=== PATIENT | female | born 1955 | race Caucasian/White ===

== ENCOUNTER 2021-04-16 08:52 | Inpatient (IN) ==
--- NOTE | 2021-04-10 07:30 | ANES ---
Anesthesia Pre Procedure Eval HOME MEDICATIONS atorvastatin 20 mg tablet 20 mg PO DAILY tab 03/14/21 [Last Taken Unknown] lansoprazole 30 mg capsule,delayed release 30 mg PO DAILY cap 03/14/21 [Last Taken Unknown] levothyroxine 50 mcg tablet 50 mcg PO DAILY tab 03/14/21 [Last Taken Unknown] loratadine 10 mg tablet 10 mg PO DAILY 03/14/21 [Last Taken Unknown] melatonin 10 mg capsule 10 mg PO HS PRN 03/14/21 [Last Taken Unknown] multivitamin 1 tab PO DAILY 03/14/21 [Last Taken Unknown] Allergies/Adverse Reactions: Allergies Allergy/AdvReac Type Severity Reaction Status Date / Time Penicillins Allergy Hives Verified 03/14/21 09:09 - Planned Procedure Planned Procedure: Right Total Knee, left knee cortisone injection Medication List Reviewed:: Yes Allergies Verified: Yes Medical History (Last Reviewed 04/10/21 @ 07:29 by Raad Stephens CRNA) Primary osteoarthritis of left knee (Acute) Primary osteoarthritis of right knee (Acute) Borderline hypothyroidism Decreased GFR GERD (gastroesophageal reflux disease) High risk medication use Hypercholesteremia Hyperkalemia Hypothyroidism (acquired) Knee pain, bilateral Seasonal allergies Surgical History (Last Reviewed 04/10/21 @ 07:29 by Raad Stephens CRNA) History of section X 3 Family History (Last Reviewed 04/10/21 @ 07:29 by Raad Stephens CRNA) Father Cancer Mother COPD (chronic obstructive pulmonary disease) - Family Anesthesia History Family History:: no untoward family reactions to anesthesia - Airway/Neck/Teeth Within Normal Limits:: Yes Teeth Condition: intact - Respiratory Smoking Status: Never smoker Sleep Apnea currently treated: No Sleep Apnea by current assessment: No - Cardiovascular Cardiac History: hyperlipidemia Tolerate Activity: Good - Gastrointestinal NPO since: instructed npo after mn - Anesthesia Assessment and Plan ASA Class: PS, II Anesthesia Type Plan: Spinal - adductor canal block
[~2021-04-16 08:52] MED LIST: BUPIVACAINE HCL IJ PRN; MORPHINE SULFATE 15 MG TABLET.SA PO PRN; ROPIVACAINE/CLONIDIN/KETOROLAC 50 ML SYRINGE IJ ONE; ROPIVACAINE/CLONIDIN/KETOROLAC 50 ML SYRINGE IJ PRN; TRANEXAMIC ACID IN NACL,ISO-OS 1,000 MG/100 ML BAG IV PRN; TRIAMCINOLONE ACETONIDE 40 MG IJ PRN; TRIAMCINOLONE ACETONIDE 40 MG/ML VIAL ONE; ceFAZolin SODIUM 1 GM VIAL IV PRN; ceFAZolin SODIUM 1 GM VIAL ONE
[2021-04-16] MEDS ORDERED: BUPIVACAINE HCL 50 ML VIAL IJ ONE (09:21)
[2021-04-16] MEDS ORDERED: MIDAZOLAM HCL/PF 5 MG/ML VIAL ONE (09:31)
[2021-04-16] MEDS ORDERED: PROPOFOL VIAL IV ONE (09:31)
[2021-04-16] MEDS ORDERED: BUPIVACAINE HCL/EPINEPHRINE 50 ML VIAL IJ ONE (09:31)
[2021-04-16] MEDS ORDERED: BUPIVACAINE HCL/PF 10 ML VIAL ONE (09:31)
[2021-04-16] MEDS ORDERED: NORMAL SALINE 20 ML VIAL ONE (09:32)
[2021-04-16] MEDS: RINGER'S SOLUTION,LACTATED 1,000 ML IV PRN ×2 (09:39→10:50)
[2021-04-16] MEDS ORDERED: TRIAMCINOLONE ACETONIDE 40 MG/ML VIAL ONE (12:04)
[2021-04-16] MEDS ORDERED: ZOLPIDEM TARTRATE 5 MG TABLET PO PRN (12:05)
[2021-04-16] MEDS ORDERED: MORPHINE SULFATE 2 MG/ML DISP.SYRIN IV PRN (12:05)
[2021-04-16] MEDS ORDERED: diphenhydrAMINE HCL 50 MG/ML VIAL IV PRN (12:05)
[2021-04-16] MEDS ORDERED: ACETAMINOPHEN 500 MG TABLET PO PRN (12:05)
[2021-04-16] MEDS ORDERED: ONDANSETRON HCL/PF 2 MG/ML VIAL IV PRN (12:05)
[2021-04-16] MEDS ORDERED: DEXTROSE 5%-LACTATED RINGERS 1,000 ML IV PRN (12:05)
[2021-04-16] MEDS ORDERED: MAGNESIUM HYDROXIDE 30 ML UDC PO PRN (12:05)
[2021-04-16] MEDS ORDERED: MAG HYDROX/ALUMINUM HYD/SIMETH 30 ML UDC PO PRN (12:05)
[2021-04-16] MEDS ORDERED: LORATADINE 10 MG TABLET PO PRN (12:07)
[2021-04-16] MEDS ORDERED: MELATONIN 3,000 MCG TABLET PO PRN (12:07)
--- NOTE | 2021-04-16 12:12 | OR ---
Operative Report - Dictated Report Narrative: Date: 04/16/2021 Preoperative diagnosis: Right knee degenerative joint disease. Left knee pain Postoperative diagnosis: Right knee degenerative joint disease. Left knee pain. Intraoperative right lateral femoral condyle fracture Procedure: Right total knee arthroplasty. Open reduction internal fixation of right lateral femoral condyle fracture. Left knee intra-articular injection Surgeon: Yair Ledezma M.D. Supervisor Capacitor Processing: Prem Vera PA-C (provided and essential set of skilled, educated hands that assisted with transfer, positioning, prepping, draping, manipulation, retraction, placement of jigs, injection, insertion of implants, irrigation, closure wounds, and dressings all of which could not be performed by the available surgical crew) Anesthesia: Spinal with regional block and local periarticular joint injection. Complications: Intraoperative fracture right lateral femoral condyle Specimens: Bone. Estimated blood loss: Minimal. Tourniquet time: 90 minutes at 300 millimeters of mercury. Retained implants: Depuy Attune size 5 narrow right lugged cemented posterior stabilized femoral component. Size 4 fixed-bearing cemented tibial platform. 5 by 6 millimeter posterior stabilized cross-linked tibial insert. 35 millimeter medialized patella button. 60 mm 3.5 mm fully threaded cortical screw with washer Indications: Mrs. Lang is a 65-year-old female who has had longstanding right knee pain and arthrosis as well as left knee pain. This patient was followed in my clinic for period of time with significant complaints of right knee pain consistent with arthritic changes. She had failed conservative measures including, but not limited to, activity modification, passage of time, medications, and other conservative measures. Patient wished to proceed with surgical treatment. The risks, benefits, and alternatives were discussed in clinic. The risks of , blood clots, bleeding, infection, nerve/tendon blood vessel/ injury, malposition of components, intraoperative fracture, postoperative limited range of motion, persistent pain, failure of components, and need for additional procedures. Patient wished to proceed consent was obtained after answering all questions. Procedure: After marking the correct extremity on the floor, the patient was taken to the operating room. A timeout was performed. IV antibiotics consisting of Ancef were administered prior to the procedure. A regional followed by spinal anesthetic was induced by anesthesia, per my request, on the operative table with all bony prominences well-padded. Ceja catheter was placed, and a bump was placed under the operative side buttock. SCDs and KENNEDY hose were utilized on the nonoperative leg. A well-padded tourniquet was applied to the operative thigh. The operative leg was then pre-scrubbed with alcohol, prepped, and draped in a standard sterile fashion. After exsanguinating the extremity with an Esmarch bandage, the tourniquet was inflated. After marking out the anterior knee for standard incision centered over the patella, the skin was incised and dissected down to the joint retinaculum. The joint retinaculum was marked out as well as the horizontal axis of the patella, and a standard medial parapatellar arthrotomy was then made. The most proximal aspect of the quadriceps tendon and the patella tendon insertion were protected from release. A partial synovectomy was performed as well as a resection of the infrapatellar fat pad. The distal femoral fat pad proximal to the trochlea was also resected using cautery. The soft tissues were elevated off the medial aspect of the proximal tibia using a Urena elevator ensuring that we did not transect the medial collateral ligament. Upon initial evaluation range of motion was approximately 3 degrees to 130 degrees of flexion. There were signs of advanced arthrosis in the medial, lateral, and patellofemoral joint spaces. There were large marginal osteophytes which were removed with a rongeur. It was noted that her bone was quite soft. The knee was hyperflexed and the patella was tucked laterally. Protecting the surrounding soft tissues with Homans, an entry drill was placed down the femoral canal using Whitesides line for guidance into the entry point. The intram edullary femoral alignment fam was utilized in order to cut the distal femur in 5 degrees of valgus resecting 10 millimeters of bone. Next the distal femur was sized to a size 5. A posterior referencing guide was utilized to place the distal femoral cutting block in 3 degrees of external rotation. This was pinned into place. The rotation was confirmed both visually and based on anatomic landmarks. The 4 in 1 cutting jig of the appropriate size was utilized in order to make all bony cuts. The heriberto wing was used to ensure no notching. Retractors were utilized in order to protect surrounding soft tissues. This cut did not result in any excessive notching. We then cut the box centered over the distal femur. This allowed for resection of the anterior and posterior cruciate ligaments. I then turned my attention to the preparation of the tibia. Using an extra medullary tibial alignment fam, 4 millimeters of bone was resected off the medial articular surface. This was made perpendicular to the mechanical axis of the joint with the alignment fam centered over the ankle mortise. The alignment fam was checked and was noted to be parallel to the mechanical axis, centered over the medial one third of the tibial tubercle, paralleling the anterior surface of the tibia. We then turned our attention to the remaining meniscus and soft tissues. These were removed while protecting the surrounding ligaments and soft tissues. The marginal osteophytes off the anterior, posterior, medial, lateral aspects of the femur and tibia were removed. The tibia was sized out to a size 4. Next the tibia was drilled and punched in an externally rotated position. Next the trial femur and a series of tibial inserts were utilized in order to allow for full extension and maximal flexion. It was found that a 6 millimeter insert gave the best range of motion and stability at multiple flexion points as well as at full extension there was less than 2 mm of gapping both medially and laterally. There is minimal anterior translation with the knee at 90 degrees of flexion and no signs of being able to dislocate the knee. The patella was then prepared. The initial thickness was 21 millimeters. This was reamed down to 12 millimeters parallel to the anterior surface of the patella. It was sized out to a size 35 medialized patella button. This was then drilled and trialed. Without any medial restraint the patella tracked appropriately and did not sublux or dislocate. At this point, it was felt these were the appropriate sized implants, and all trials were removed. At this point it was discovered that she had a longitudinal split without displacement of a lateral femoral condyle which exited out through the distal femoral pinhole and into the notch. It did not extend to the cortex laterally. A 3.5 mm fully threaded cortical screw was placed medial to lateral with a washer while holding the fracture reduced with pointed reduction clamps. The clamps were held in place as well throughout the remaining portion of procedure. Next, the standard periarticular joint injection consisting of ropivacaine, Toradol, and epinephrine were injected into the periarticular joint tissues. The bony surfaces were thoroughly irrigated with a pulsatile-suction saline irrigation device. A bone plug from the prior resected anterior chamfer cut was placed into the drill hole at the distal femur. The bony surfaces were then dried in preparation for placement of the implants. The cement was vacuum mixed per the boilermaker assembly and erection's instructions. The cement was placed on the dry bony surfaces and posterior aspect of the implants. The implants were impacted into place, removing all extruded cement. At this point anesthesia administered tranexamic acid per protocol intravenously. The knee was placed in extension with axial loading with the trial insert while the cement cured. Once the cement cured, all remaining extruded cement was removed. The knee was placed through a range of motion with the trial insert to ensure appropriate range of motion and stability. Final range of motion was approximately 0 to 130 degrees. The knee was again thoroughly irrigated with pulsatile saline lavage. The final polyethylene insert was then impacted into place ensuring no retained soft tissues. The remaining periarticular joint injection was injected. A medium Hemovac drain was placed exiting superior laterally. The knee was then placed over a triangle and the arthrotomy was closed with interrupted #1 Vicryl after thoroughly irrigating the joint. The deep and subcutaneous tissues were closed with interrupted 0 and 3-0 Vicryl respectively. Skin was closed with a running subcutaneous 3-0 Monocryl and Prineo Dermabond dressing. 4 x 4's, Sof-Rol, and a full leg Jeff wrap were applied. All sponge, needle, blade, and instrument counts were correct prior to closing the wounds. A left knee steroid injection with 40 mg of Kenalog and local anesthetic was injected into the left knee using sterile technique and a bandage was applied. Postoperative condition: The patient was awoken and transferred to the postanesthesia care unit in stable condition. Plan is to be admitted to the inpatient medical/surgical floor postoperatively for 24 hours of IV antibiotics, physical therapy, occupational therapy, and medical comanagement. Patient will be weightbearing as tolerated with range of motion as tolerated. DVT prophylaxis will be with SCDs, KENNEDY hose, and pharmacological anticoagulation. Anticipated hospital stay is approximately 1-3 days.
--- NOTE | 2021-04-16 12:36 | ANES ---
Post Anesthesia Discharge - Transfer of Care Transfer of Care handoff given to nurse: Yes - Discharge from PACU Discharge from PACU when meets criteria: Yes
--- NOTE | 2021-04-16 12:39 | ANES ---
Anesthesia Procedure Note Procedure Note: ANESTHESIA PROCEDURE NOTE Date of procedure: 04/16/2021. Time of procedure: 1020. Performed by: Jaya Stephens CRNA Roller Presser Operator: Stephy Ferrara RN . Preprocedure diagnosis: Right knee DJD. Post procedure diagnosis: Same. Procedure: Ultrasound-guided right adductor canal block Indications: Postoperative analgesia. Findings: Patient brought to operating room #4, sedated, and given a spinal anesthetic. Patient was then placed in a supine position. Patient's right inner thigh was prepped with ChloraPrep. Ultrasound utilized to identify the saphenous nerve in the right adductor canal. A 20-gauge 4 inch regional block needle was advanced under ultrasound guidance till tip of needle was placed just proximally to saphenous nerve. A total of 30 mL of 0.25% Marcaine with epinephrine 1 200,000 was injected with adequate spread of local anesthesia noted. Regional block needle was removed intact. EBL: Minimal. Fluids: N/A. Specimen: N/A. Post procedure condition: The patient tolerated the procedure well. No complications were noted. Thank you for this consultation Jaya Stephens CRNA
--- NOTE | 2021-04-16 12:44 | ANES ---
Post Anesthesia Assessment - Vital Signs Vitals: Last Vital Signs Temp 36.2 C 04/16/21 12:40 Pulse 101 H 04/16/21 12:40 Resp 20 04/16/21 12:40 BP 113/58 04/16/21 12:40 Pulse Ox 98 04/16/21 12:40 Airway Patency: Normal - Mental Status Level Of Consciousness: Awake - Pain Level Pain Score: 0 - N/V Assessment Nausea/Vomiting Presence: None Dehydration:: No
[2021-04-16] MEDS: ceFAZolin SODIUM 1 GM in DEXTROSE 5 % IN WATER 100 ML IV SCH ×4 (13:26→20:21)
[2021-04-16] MEDS: KETOROLAC TROMETHAMINE 15 MG/ML VIAL IV SCH ×2 (13:27→18:47)
[2021-04-16] MEDS ORDERED: PANTOPRAZOLE SODIUM 40 MG TABLET.EC ONE (17:51)
[2021-04-16] MEDS: PANTOPRAZOLE SODIUM 40 MG TABLET.EC PO SCH (17:54)
[2021-04-16] MEDS: oxyCODONE HCL/ACETAMINOPHEN 1 TAB TABLET PO PRN (19:44)
[2021-04-16] MEDS: MORPHINE SULFATE 15 MG TABLET.SA PO SCH (20:18)
[2021-04-16] MEDS: ASPIRIN 81 MG TABLET.DR PO SCH (20:18)
[2021-04-16] MEDS ORDERED: SENNOSIDES/DOCUSATE SODIUM 1 TAB TABLET PO SCH (21:00)
[2021-04-16] MEDS ORDERED: ROSUVASTATIN CALCIUM 10 MG TABLET PO SCH (21:00)
[2021-04-17] MEDS: KETOROLAC TROMETHAMINE 15 MG/ML VIAL IV SCH ×3 (01:06→11:44)
[2021-04-17] MEDS: ceFAZolin SODIUM 1 GM in DEXTROSE 5 % IN WATER 100 ML IV SCH ×2 (01:09)
[2021-04-17] MEDS: PANTOPRAZOLE SODIUM 40 MG TABLET.EC PO SCH (06:37)
[2021-04-17] MEDS ORDERED: LEVOTHYROXINE SODIUM 50 MCG TABLET PO SCH (07:00)
[2021-04-17 07:07] LABS: Hematocrit 34.6 % (37.0-47.0); Hemoglobin 11.3 gm/dL (12.5-16.0); Mean Cell Volume 94.3 fl (78-100); Mean Corpuscular Hemoglobin 30.8 pg (27-31); Mean Corpuscular Hgb Conc 32.7 g/dl (32-36); Mean Platelet Volume 10.4 fl (8-12.5); Platelet Count 199 K/mm3 (150-450); Red Blood Count 3.67 M/mm3 (4.2-5.4); Red Cell Distribution Width 12.5 % (11.5-14.0); White Blood Count 11.5 K/mm3 (4.0-10.5)
[2021-04-17 07:14] LABS: Anion Gap 12.1 mmol/L (6.8-13.8); BUN/Creatinine Ratio 14.4 (9.0-21.6); Calcium * 8.7 mg/dL (7.9-10.9); Carbon Dioxide 26.3 mmol/L (24-32.6); Estimated Creat Clear 47.8; Potassium 4.4 mmol/L (3.4-4.6)
[2021-04-17] MEDS: oxyCODONE HCL/ACETAMINOPHEN 1 TAB TABLET PO PRN ×2 (08:07→15:57)
[2021-04-17] MEDS: ASPIRIN 81 MG TABLET.DR PO SCH (08:08)
[2021-04-17] MEDS ORDERED: MULTIVITAMINS 1 CAP CAPSULE PO SCH (09:00)
[2021-04-17] MEDS: MORPHINE SULFATE 15 MG TABLET.SA PO SCH (10:09)
[2021-04-17] MEDS ORDERED: ENOXAPARIN SODIUM 40 MG/0.4 ML SYRG SC SCH (11:06)
--- NOTE | 2021-04-17 14:42 | DS ---
(1) Status post right knee replacement Problem: Acute Date of Discharge:: 04/17/21 Hospital Course: Mrs. Lang was admitted to the floor after undergoing right total knee arthroplasty. Tolerated this well. Was admitted to the floor postoperatively for 24 hours of IV antibiotics, pain control, medical comanagement, and occupational and physical therapy. OT and PT were consulted to assist with activities of daily living and ambulation. Was made weightbearing as tolerated with range of motion as tolerated. Pain was initially controlled with IV regimen. This was transitioned to oral once tolerating a by mouth intake. Was resumed on home diet and medications. Had a Ceja catheter inserted and the operating room which was discontinued on postoperative day 1. A drain was placed intraoperatively into the knee which was discontinued on postoperative day 1. Lovenox SCD, 81 mg aspirin twice daily and KENNEDY hose were utilized for DVT prophylaxis. Vital signs remained stable to the hospital course. Serial labs were obtained which showed a final hemoglobin of 11.3 grams. BMP was r eviewed and was stable. Physical examination throughout the hospital course showed an extremity that had sensation that was intact to light touch, palpable pulses, a benign wound, motor intact to the toes, ankle, and knee. Knee range of motion was approximately 5 degrees to 70 degrees. Once an oral pain regimen was tolerated and physical therapy goals were met, it was felt that they were stable for discharge to home. Instructions: Continue with weightbearing as tolerated and range of motion as tolerated. It is OK to shower on the wound if it is not draining. If you note any drainage or f or comfort you can cover with dry gauze and tape. Change every 2-3 days as needed. Continue with physical therapy. Resume home diet. Report any fever over 101.5 Fahrenheit, uncontrolled pain, increased drainage, foul odor of drainage, new or increased calf pain or shortness of breath, or any other significant complaints. A 81 mg aspirin but twice daily for 6 weeks. Continue with KENNEDY hose on the operative extremity until instructed otherwise. No driving until instructed otherwise. Follow up in approximately 10-14 days. Procedures Performed: see notes below List Procedures: Right total knee arthroplasty Results and Findings: Lab Pending Results 04/17/21 06:30: WBC 11.5 H, RBC 3.67 L, Hgb 11.3 L, Hct 34.6 L, MCV 94.3, MCH 30.8, MCHC 32.7, RDW 12.5, Plt Count 199, MPV 10.4 04/17/21 06:30: Sodium 142, Plasma Sodium 142, Potassium 4.4, Chloride 108 H, Carbon Dioxide 26.3, Anion Gap 12.1, BUN 15, Creatinine 1.04, Est GFR (Non-Af Amer) 56 L, BUN/Creatinine Ratio 14.4, Random Glucose 111 H, Calcium 8.7 Discharge Location: Home Disposition: Home self-care Condition: Good Discharge Activity: Activity as tolerated, Weight bearing, Other - With wheeled walker Discharge Diet: General/regular food, Low fat/chol Referrals: Elda Kee MD [Primary Care Provider] - Additional Patient Instructions (free text): Physical Therapy at [facility] outpatient rehab department on April 18 at 9:15am.. Follow up [facility] Orthopedic office appointment on ThursdayMay 06 at 9:30am. Prescriptions (Any new or edited meds): Morphine Sulfate [Ms Contin] 15 mg PO Q12H #14 tablet. Transmission Status: Received by [facility] #[id number] oxyCODONE HCL/ACETAMINOPHEN [Percocet 5 MG/325 MG] 2 tab PO Q4H PRN #56 tab PRN Reason: Moderate Pain (Pain Scale 4-6) Transmission Status: Received by [facility] #[id number] Sennosides/Docusate Sodium [Senokot-S] 2 tab PO HS #30 tab Transmission Status: Pending to [facility] #[id number] Complete Home Medications List: Complete Home Medication List: atorvastatin 20 mg tablet 20 mg PO DAILY tab 03/14/21 lansoprazole 30 mg capsule,delayed release 30 mg PO DAILY cap 03/14/21 levothyroxine 50 mcg tablet 50 mcg PO DAILY tab 03/14/21 loratadine 10 mg tablet 10 mg PO DAILY PRN 03/14/21 melatonin 10 mg capsule 10 mg PO HS PRN 03/14/21 multivitamin 1 tab PO DAILY 03/14/21 Aspirin [Aspirin Enteric Coated] 81 mg PO BID tablet. 04/17/21 Morphine Sulfate [Ms Contin] 15 mg PO Q12H #14 tablet. 04/17/21 Sennosides/Docusate Sodium [Senokot-S] 2 tab PO HS #30 tab 04/17/21 oxyCODONE HCL/ACETAMINOPHEN [Percocet 5 MG/325 MG] 2 tab PO Q4H PRN #56 tab 04/17/21 Amb Orders for Discharge: PT Evaluation and Treatment* Facility: [facility], Location: Rehabilitation Services Forms: Patient Portal Registration
[2021-04-17 15:23] VITALS: BP 91/48
== END 2021-04-17 16:10 | disposition home or self-care (01) | DRG 470 ==
LOC: MS 08:52 → EDSTATUS 10:00
PROVIDERS: ADMIT Orthopaedic Surgery; ATTEND Orthopaedic Surgery